=== PATIENT | male | born 1960 | race Caucasian/White ===

== ENCOUNTER 2021-06-28 13:23 | Emergency (ER) | payer BC, MEDICAID ==
[~2021-06-28] VITALS: Ht 165.1 cm; Wt 63.5 kg
[2021-06-28 13:30] VITALS: BP 127/71
--- NOTE | 2021-06-28 13:40 | NUR ---
BIBS C/O Left Knee pain after tripped and fell yesterday. Ambulatory, [id number], in pain 11/26
--- NOTE | 2021-06-28 14:05 | NUR ---
AT BED SIDE
--- NOTE | 2021-06-28 14:13 | NUR ---
X-RAY TECH. AT BED SIDE
--- NOTE | 2021-06-28 14:56 | NUR ---
Patient discharged to home in stable condition. Written and verbal after care instructions given. Patient verbalizes understanding of instruction.
== END 2021-06-28 14:55 | disposition home or self-care (01) ==
LOC: ER 13:40
DX: S80.02XA Contusion of left knee, initial encounter (principal); W01.0XXA Fall on same level from slipping, tripping and stumbling without subsequent striking against object, initial encounter; Y93.89 Activity, other specified; Y92.89 Other specified places as the place of occurrence of the external cause; Y99.8 Other external cause status
CPT/HCPCS: 71045-TC; 73564-TC

== ENCOUNTER 2024-11-17 16:16 | Emergency (ER) | payer BC ==
[~2024-11-17] VITALS: Ht 165.1 cm; Wt 61.2 kg
[2024-11-17 16:52] VITALS: BP 148/91; TEMP 98.2
[2024-11-17] MEDS ORDERED: LIDOCAINE 5% (PATCH) 1 EA PATCH TP ONE (17:11)
[2024-11-17] MEDS ORDERED: IBUPROFEN 600 MG TABLET ONE (17:11)
[2024-11-17] MEDS ORDERED: LIDO30AD10 TP (17:13)
[2024-11-17] MEDS ORDERED: IBUP-1953 PO (17:13)
[2024-11-17] MEDS ORDERED: HYDR-500 PO (17:13)
[2024-11-17] MEDS ORDERED: DIAZEPAM 5 MG TABLET ONE (17:17)
[2024-11-17] MEDS: IBUPROFEN 600 MG TABLET PO ONE (17:21)
[2024-11-17] MEDS: LIDOCAINE 5% (PATCH) 1 EA PATCH TP SCH (17:21)
[2024-11-17] MEDS: DIAZEPAM 5 MG TABLET PO ONE (17:21)
[2024-11-17] MEDS ORDERED: DIAZEPAM 5 MG TABLET PO ONE (17:30)
[2024-11-17 17:40] VITALS: O2SAT 97
== END 2024-11-17 17:41 | disposition home or self-care (01) ==
LOC: ER 16:19
DX: F41.9 Anxiety disorder, unspecified (principal); G89.29 Other chronic pain; M54.9 Dorsalgia, unspecified; Z87.39 Personal history of other diseases of the musculoskeletal system and connective tissue